=== PATIENT | male | born 1945 | race Caucasian/White ===

== ENCOUNTER 2020-11-15 09:05 | Day surgery (SDC) | payer MEDICARE, BC, SELFPAY ==
--- NOTE | 2020-11-11 07:53 | MHC.SHP ---
Pre-Procedural Eval Section A The patient is an INPATIENT: No The History & Physical has been completed within 30 days and I have reviewed it.: Yes Section B Chief Complaint: Cataract Left Eye Allergies: Allergies Allergy/AdvReac Type Severity Reaction Status Date / Time Sulfa (Sulfonamide Allergy Gastrointestinal Verified 11/09/20 11:05 Antibiotics) Upset Plan Diagnosis/Plan: Unchanged I have reviewed the history and physical and performed a pertinent physical examination on my patient. No changes have occurred unless specified.
[2020-11-15 10:30] VITALS: BMI 31.1
--- NOTE | 2020-11-15 10:50 | HO.ANESPROP2 ---
FORMERLY [facility] Past Medical History Medical History (Updated 11/11/20 @ 13:40 by Abbie Dejesus) Arthritis CAD (coronary artery disease) COPD (chronic obstructive pulmonary disease) Environmental allergies GERD (gastroesophageal reflux disease) History of anemia HTN (hypertension) Hx of acute bronchitis Hx of skin cancer, basal cell Hx of supraventricular tachycardia Hypothyroidism Non-STEMI (non-ST elevated myocardial infarction) BRYAN on CPAP Pacemaker PAF (paroxysmal atrial fibrillation) Seasonal allergies Surgical History Surgical History (Updated 11/11/20 @ 13:40 by Abbie Dejesus) History of cardiac radiofrequency ablation Hx of appendectomy Hx of cardiac catheterization Hx of colonoscopy Stented coronary artery Social History Social History (Updated 11/09/20 @ 11:05 by Abbie Dejesus) Patient Tobacco Use Status: Former Tobacco user Quit Date: Smoked in Last 30 Days: No Use of substances other than those prescribed or required for medical reasons: No Are you DNR?: No Advance Directives: No Advance Directives Information Provided: Yes Recently lost weight without trying: No Nutrition Risks: No Nutritional Risk Poor oral hygiene: No Meds Allergies Allergy/AdvReac Type Severity Reaction Status Date / Time Sulfa (Sulfonamide Allergy Gastrointestinal Verified 11/09/20 11:05 Antibiotics) Upset Active Medications: Current Medications Generic Name Dose Route Start Last Admin Trade Name Freq PRN Reason Stop Dose Admin Lactated Ringer's 500 mls @ 50 mls/hr 11/15/20 10:45 Lr IV 11/15/20 20:44 .Q10H GUERA Povidone Iodine 1 appl 11/15/20 10:26 Povidone Iodine 5 % Ophth Soln 30 Ml Bottle EYE-LEFT PREOP PRN Pre-Op Surgical Implant Prophy Home Medications Medication Instructions Recorded Confirmed Last Taken Type albuterol sulfate 2 puff INHALATION Q4H PRN 11/09/20 11/09/20 Unknown History apixaban [Eliquis] 1 tab PO BID 11/09/20 11/09/20 Unknown History cetirizine 1 tab PO DAILY 11/09/20 11/09/20 11/15/20 07:00 History clonidine HCl 1 tab PO BID 11/09/20 11/09/20 Unknown History clopidogrel 1 tab PO DAILY 11/09/20 11/09/20 Unknown History diltiazem HCl 1 cap PO DAILY 0611/09/20 11/15/20 07:00 History esomeprazole magnesium 20 mg PO DAILY 11/09/20 11/09/20 11/15/20 07:00 History hydralazine 1 tab PO TID 11/09/20 11/09/20 Unknown History isosorbide mononitrate 120 mg PO DAILY 11/09/20 11/11/20 11/15/20 07:00 History lamotrigine 1 tab PO BID 11/09/20 11/09/20 Unknown History levalbuterol tartrate 1 - 2 puff INHALATION Q4H PRN 11/09/20 11/09/20 Unknown History levothyroxine 1 tab PO Q OTHER DAY 11/09/20 11/09/20 Unknown History lisinopril 1 tab PO DAILY 11/09/20 11/09/20 Unknown History nitroglycerin 1 tab SUBLINGUAL NEEDED 11/09/20 11/09/20 Unknown History rosuvastatin 1 tab PO DAILY 11/09/20 11/09/20 Unknown History tizanidine 1 cap PO DAILY PRN 11/09/20 11/09/20 Unknown History triamcinolone acetonide 2 spray INTRANASAL DAILY 11/09/20 11/09/20 Unknown History carvedilol 1 tab PO BID 11/11/20 11/11/20 11/15/20 07:00 History cholecalciferol (vitamin D3) 125 mcg PO DAILY 11/11/20 11/11/20 Unknown History [Vitamin D3] lorazepam 0.5 mg PO TID PRN 11/11/20 11/11/20 Unknown History Exam Exam Date and Time: November 15, 2020 1050 Height,Weight and Vital Signs: Height 5 ft 11 in Weight 101.151 kg Airway Mallampati Class: II TM Dist: >3cm Neck ROM: Full Heart: rrr Lungs: cta Assessment and Plan Assessment Anesthesia Assessment: Anesthesia Plan Discussed and Chart Reviewed Final Anesthetic Review NPO: Yes ASA Class: III Final Preanesthetic Review: No Changes in Pt Med Stat and Consent Obtained/Reviewed Patient Risk: Intermediate Procedure Risk: Intermediate Anesthetic Plan Anesthetic Plan: MAC: Disposition: Standard PACU
[2020-11-15] MEDS: Tetracaine HCl/PF 0.5% Oph Sol 4 ML DROPS 1 DROP EYE-LEFT (10:59)
[2020-11-15] MEDS: Tropicamide 1 % Ophth Sol 3 ML BTL 1 DROP EYE-LEFT ×3 (11:00→11:19)
[2020-11-15] MEDS: Lactated Ringers 500 ML 50 ML IV (11:03)
[2020-11-15] MEDS: Phenylephrine HCL 2.5% Oph SoL 2 ML BOTTLE 1 DROP EYE-LEFT ×3 (11:05→11:26)
--- NOTE | 2020-11-15 12:29 | HO.PNOPHT ---
Ophthalmology Procedure Procedure Date of Service: 11/15/20 Ophthalmology Viscoelastic: Healon Duet Dual Pack Pro Ophthalmology Lenses: TECMARIA GUADALUPE [id number] (19) Procedure Notes: PREOPERATIVE DIAGNOSIS: Decreased visual acuity left eye secondary to cataract POSTOPERATIVE DIAGNOSIS: Same PROCEDURE: Left cataract extraction with intraocular lens insertion SURGEON: Ihsan Bloom M.D. ANESTHESIA: Topical/MAC ESTIMATED BLOOD LOSS: None COMPLICATIONS: None After obtaining informed consent, the patient was brought to the operation room suite and placed in the supine position. After adequate sedation per anesthesia, topical drops of Tetracaine were given to the left eye. The eye was then prepped and draped in the usual sterile fashion. The operating room microscope was then positioned over the operative eye and a lid speculum placed. A paracentesis was created. Viscoelastic was then instilled into the anterior chamber. A three plane incision was then created temporally, utilizing a 2.85 mm keratome. Capsulotomy forceps were then utilized to create a circular tear capsulotomy. Hydrodissection and hydrodelineation were carried out until adequate mobilization of the nucleus occurred. Phacoemulsification was then utilized to remove the dense central nucleus followed by removal of the cortical material utilizing the automated aspiration irrigation unit. Viscoat elastic was instilled into the posterior capsular bag followed by placement of a posterior chamber intraocular lens without difficulty. The residual Viscoat elastic was then removed utilizing the automated IA machine. The wound was check and found to be watertight. The patient tolerated the procedure well and the lid speculum was removed. Intracameral injection of Vigamox 0.1 mL followed by a subtenon injection of Kenalog-40 0.2 mL were administered. The patient will be seen in the a.m.
[2020-11-15 12:57] VITALS: BP 146/58; PULSE 54; RESP 16; TEMP 36.6; O2SAT 95
== END 2020-11-15 13:06 | disposition home or self-care (01) ==
PROVIDERS: PCP Internal Medicine; Visit Provider Ophthalmology
PROC: (CPT 66985; principal; 2020-11-15 11:40)
DX: H25.12 Age-related nuclear cataract, left eye (principal); H52.4 Presbyopia; I10 Essential (primary) hypertension; I25.10 Atherosclerotic heart disease of native coronary artery without angina pectoris; Z98.61 Coronary angioplasty status; I48.0 Paroxysmal atrial fibrillation; Z79.01 Long term (current) use of anticoagulants; Z95.0 Presence of cardiac pacemaker; J44.9 Chronic obstructive pulmonary disease, unspecified; G47.33 Obstructive sleep apnea (adult) (pediatric); Z79.899 Other long term (current) drug therapy; Z87.891 Personal history of nicotine dependence
CPT/HCPCS: 66984; J2250; J3010; J3300; V2632

== ENCOUNTER 2020-11-29 09:32 | Day surgery (SDC) | payer MEDICARE, BC, SELFPAY ==
--- NOTE | 2020-11-25 07:51 | MHC.SHP ---
Pre-Procedural Eval Section A Date of Service: 11/25/20 The patient is an INPATIENT: No The History & Physical has been completed within 30 days and I have reviewed it.: Yes Section B Chief Complaint: Cataract Right Eye Allergies: Allergies Allergy/AdvReac Type Severity Reaction Status Date / Time Sulfa (Sulfonamide Allergy Gastrointestinal Verified 11/09/20 11:05 Antibiotics) Upset Plan Diagnosis/Plan: Unchanged I have reviewed the history and physical and performed a pertinent physical examination on my patient. No changes have occurred unless specified.
--- NOTE | 2020-11-26 10:21 | HO.ANESPROP2 ---
Documented by User: Ivone Brooks 11/26/20 10:30 HPI - Anesthesia Eval Consult details Narrative: 75yo M for Right Cataract Extraction IOL Insertion Pacer in situ Eliquis for afib Cardiac cleared Left eye 11/15: Fent 76, Midaz 2 PMFSH Past Medical History Medical History Arthritis CAD (coronary artery disease) COPD (chronic obstructive pulmonary disease) Environmental allergies GERD (gastroesophageal reflux disease) History of anemia HTN (hypertension) Hx of acute bronchitis Hx of skin cancer, basal cell Hx of supraventricular tachycardia Hypothyroidism Non-STEMI (non-ST elevated myocardial infarction) BRYAN on CPAP Pacemaker PAF (paroxysmal atrial fibrillation) Seasonal allergies Surgical History Surgical History History of cardiac radiofrequency ablation Hx of appendectomy Hx of cardiac catheterization Hx of colonoscopy Stented coronary artery Social History Social History Patient Tobacco Use Status: Former Tobacco user Quit Date: Use of substances other than those prescribed or required for medical reasons: No Have you been hit, kicked, punched, or otherwise hurt by someone within the past year? If so, by whom?: No Are you DNR?: No Advance Directives: No Advance Directives Information Provided: Yes Meds Allergies Allergy/AdvReac Type Severity Reaction Status Date / Time Sulfa (Sulfonamide Allergy Gastrointestinal Verified 11/29/20 11:44 Antibiotics) Upset Home Medications Medication Instructions Recorded Confirmed Last Taken Type albuterol sulfate 2 puff INHALATION Q4H PRN 11/09/20 11/09/20 Unknown History apixaban [Eliquis] 1 tab PO BID 11/09/20 11/09/20 11/28/20 21:00 History cetirizine 1 tab PO DAILY 11/09/20 11/09/20 11/15/20 07:00 History clonidine HCl 1 tab PO BID 11/09/20 11/09/20 Unknown History clopidogrel 1 tab PO DAILY 11/09/20 11/09/20 11/28/20 21:00 History diltiazem HCl 1 cap PO DAILY 11/09/20 11/09/20 11/15/20 07:00 History esomeprazole magnesium 20 mg PO DAILY 11/09/20 11/09/2021 07:00 History hydralazine 1 tab PO TID 11/09/20 11/09/20 Unknown History isosorbide mononitrate 120 mg PO DAILY 11/09/20 11/11/20 11/15/20 07:00 History lamotrigine 1 tab PO BID 11/09/20 11/09/20 Unknown History levalbuterol tartrate 1 - 2 puff INHALATION Q4H PRN 11/09/20 11/09/20 Unknown History levothyroxine 1 tab PO Q OTHER DAY 11/09/20 11/09/20 Unknown History lisinopril 1 tab PO DAILY 11/09/20 11/09/20 Unknown History nitroglycerin 1 tab SUBLINGUAL NEEDED 11/09/20 11/09/20 Unknown History rosuvastatin 1 tab PO DAILY 11/09/20 11/09/20 Unknown History tizanidine 1 cap PO DAILY PRN 11/09/20 11/09/20 Unknown History triamcinolone acetonide 2 spray INTRANASAL DAILY 11/09/20 11/09/20 Unknown History carvedilol 1 tab PO BID 11/11/20 11/11/20 11/15/20 07:00 History cholecalciferol (vitamin D3) 125 mcg PO DAILY 11/11/20 11/11/20 Unknown History [Vitamin D3] lorazepam 0.5 mg PO TID PRN 11/11/20 11/11/20 Unknown History Exam Exam Date and Time: November 26, 2020 1021 Narrative Narrative: Pacer Interr 08/2020 [employer] VVI-40 [employer] 0% Echo 09/2020 LV size is normal, mild LVH, no definite WMA, EF 60-65%, moderate DD, RV normal in size and function, no signif valve disease, borderline pulmonary htn EKG 10/2020 NSR @ 63, Incomp RBBB, Assessment and Plan Assessment Anesthesia Assessment: Chart Reviewed Documented by User: Jacob De Jesus 11/29/20 12:39 [facility] Past Medical History Medical History Arthritis CAD (coronary artery disease) COPD (chronic obstructive pulmonary disease) Environmental allergies GERD (gastroesophageal reflux disease) History of anemia HTN (hypertension) Hx of acute bronchitis Hx of skin cancer, basal cell Hx of supraventricular tachycardia Hypothyroidism Non-STEMI (non-ST elevated myocardial infarction) BRYAN on CPAP Pacemaker PAF (paroxysmal atrial fibrillation) Seasonal allergies Surgical History Surgical History History of cardiac radiofrequency ablation Hx of appendectomy Hx of cardiac catheterization Hx of colonoscopy Stented coronary artery Social History Social History Patient Tobacco Use Status: Former Tobacco user Quit Date: Use of substances other than those prescribed or required for medical reasons: No Have you been hit, kicked, punched, or otherwise hurt by someone within the past year? If so, by whom?: No Are you DNR?: No Advance Directives: No Advance Directives Information Provided: Yes Meds Allergies Allergy/AdvReac Type Severity Reaction Status Date / Time Sulfa (Sulfonamide Allergy Gastrointestinal Verified 11/29/20 11:44 Antibiotics) Upset Home Medications Medication Instructions Recorded Confirmed Last Taken Type albuterol sulfate 2 puff INHALATION Q4H PRN 11/09/20 11/09/20 Unknown History apixaban [Eliquis] 1 tab PO BID 11/09/20 11/09/20 11/28/20 21:00 History cetirizine 1 tab PO DAILY 11/09/20 11/09/20 11/15/20 07:00 History clonidine HCl 1 tab PO BID 11/09/20 11/09/20 Unknown History clopidogrel 1 tab PO DAILY 11/09/20 11/09/20 11/28/20 21:00 History diltiazem HCl 1 cap PO DAILY 11/09/20 11/09/20 11/15/20 07:00 History esomeprazole magnesium 20 mg PO DAILY 11/09/20 11/09/20 11/15/20 07:00 History hydralazine 1 tab PO TID 11/09/20 11/09/20 Unknown History isosorbide mononitrate 120 mg PO DAILY 11/09/20 11/11/20 11/15/20 07:00 History lamotrigine 1 tab PO BID 11/09/20 11/09/20 Unknown History levalbuterol tartrate 1 - 2 puff INHALATION Q4H PRN 11/09/20 11/09/20 Unknown History levothyroxine 1 tab PO Q OTHER DAY 11/09/20 11/09/20 Unknown History lisinopril 1 tab PO DAILY 11/09/20 11/09/20 Unknown History nitroglycerin 1 tab SUBLINGUAL NEEDED 11/09/20 11/09/20 Unknown History rosuvastatin 1 tab PO DAILY 11/09/20 11/09/20 Unknown History tizanidine 1 cap PO DAILY PRN 11/09/20 11/09/20 Unknown History triamcinolone acetonide 2 spray INTRANASAL DAILY 11/09/20 11/09/20 Unknown History carvedilol 1 tab PO BID 11/11/20 11/11/20 11/15/20 07:00 History cholecalciferol (vitamin D3) 125 mcg PO DAILY 11/11/20 11/11/20 Unknown History [Vitamin D3] lorazepam 0.5 mg PO TID PRN 11/11/20 11/11/20 Unknown History Exam Airway Mallampati Class: III TM Dist: >3cm Neck ROM: Full Loose/Missing/Broken Teeth: No Heart: rrr+[id number] Lungs: cta b/l Assessment and Plan Assessment Anesthesia Assessment: Anesthesia Plan Discussed, Smoking Cess. Discussed, PAT Visit and Chart Reviewed Final Anesthetic Review NPO: Yes ASA Class: III Final Preanesthetic Review: No Changes in Pt Med Stat, Meds/Allgs Chart Reviewed, Consent Obtained/Reviewed and Anes Risks/Benef Reviewed Patient Risk: Intermediate Procedure Risk: Low Assessment/Block/Sedation in SS: Assess/Block/Sedation-SS Anesthetic Plan Anesthetic Plan: MAC: and Agree w/ Assess. and Plan Disposition: Standard PACU
[2020-11-29 10:59] VITALS: BMI 31.1
[2020-11-29 11:00] VITALS: BP 160/62; PULSE 53; RESP 18; TEMP 36.7; O2SAT 96
[2020-11-29] MEDS: Tetracaine HCl/PF 0.5% Oph Sol 4 ML DROPS 1 DROP EYE-RIGHT (11:26)
[2020-11-29] MEDS: Tropicamide 1 % Ophth Sol 3 ML BTL 1 DROP EYE-RIGHT ×3 (11:27→11:39)
[2020-11-29] MEDS: Lactated Ringers 500 ML 50 ML IV (11:29)
[2020-11-29] MEDS: Phenylephrine HCL 2.5% Oph SoL 2 ML BOTTLE 1 DROP EYE-RIGHT ×3 (11:31→11:43)
--- NOTE | 2020-11-29 13:04 | HO.PNOPHT ---
Ophthalmology Procedure Procedure Date of Service: 11/29/20 Ophthalmology Viscoelastic: Healon Duet Dual Pack Pro Ophthalmology Lenses: TECNIS [id number] (18.5) Procedure Notes: PREOPERATIVE DIAGNOSIS: Decreased visual acuity right eye secondary to cataract POSTOPERATIVE DIAGNOSIS: Same PROCEDURE: Right cataract extraction with intraocular lens insertion SURGEON: Ihsan Bloom M.D. ANESTHESIA: Topical/MAC ESTIMATED BLOOD LOSS: None COMPLICATIONS: None After obtaining informed consent, the patient was brought to the operating room suite and placed in the supine position. After adequate sedation per anesthesia, topical drops of Tetracaine were given to the right eye. The eye was then prepped and draped in the usual sterile fashion. The operating room microscope was then positioned over the operative eye and a lid speculum placed. A paracentesis was created. Viscoelastic was then instilled into the anterior chamber. A three plane incision was then created temporally, utilizing a 2.85 mm keratome. Capsulotomy forceps were then utilized to create a circular tear capsulotomy. Hydrodissection and hydrodelineation were carried out until adequate mobilization of the nucleus occurred. Phacoemulsification was then utilized to remove the dense central nucleus followed by removal of the cortical material utilizing the automated aspiration irrigation unit. Viscoelastic was instilled into the posterior capsular bag followed by placement of a posterior chamber intraocular lens without difficulty. The residual Viscoelastic was then removed utilizing the automated IA machine. The wound was checked and found to be watertight. The patient tolerated the procedure well and the lid speculum was removed. Intracameral injection of Vigamox 0.1 mL followed by a subtenon injection of Kenalog-40 0.2 mL were administered. The patient will be seen in the a.m.
[2020-11-29 13:25] VITALS: BP 174/71; PULSE 53; RESP 16; TEMP 36.2; O2SAT 97
[2020-11-29] MEDS: ondansetron HCL 4 MG/2 ML VIAL IVPUSH (13:34)
== END 2020-11-29 13:57 | disposition home or self-care (01) ==
PROVIDERS: PCP Internal Medicine; Visit Provider Ophthalmology
PROC: (CPT 66985; principal; 2020-11-29 12:30)
DX: H25.11 Age-related nuclear cataract, right eye (principal); H52.4 Presbyopia; J44.9 Chronic obstructive pulmonary disease, unspecified; I25.10 Atherosclerotic heart disease of native coronary artery without angina pectoris; Z98.61 Coronary angioplasty status; I10 Essential (primary) hypertension; Z95.0 Presence of cardiac pacemaker; G47.33 Obstructive sleep apnea (adult) (pediatric); E03.9 Hypothyroidism, unspecified; I48.0 Paroxysmal atrial fibrillation; Z79.01 Long term (current) use of anticoagulants; Z85.828 Personal history of other malignant neoplasm of skin; Z87.891 Personal history of nicotine dependence
CPT/HCPCS: 66984; J2405; J2550; J3010; J3300; V2632